=== PATIENT | male | born 1980 | race Caucasian/White ===

== ENCOUNTER 2016-12-15 14:04 | Day surgery (SDC) | payer BC ==
--- NOTE | ~2016-12-15 | OP ---
Record Of Operation [facility] [address] [place]. [address] NAME: JOANN ROJO : 80 STATUS : [facility] UNIT#: [id number] AGE: 36 ADM/REG DATE : 12/15/16 MR#: [id number] REPORT SERV DATE: 12/15/16 DICTATED BY: DENISHA PATINO DATE: 12/15/16 REPORT STATUS : Draft TRANSCRIBED BY: MODMatthias DATE: 12/15/16 DATE OF PROCEDURE: 12/15/2016 PREPROCEDURE DIAGNOSIS: 1 cm right ureteropelvic junction calculus. POSTPROCEDURE DIAGNOSIS: 1 cm right ureteropelvic junction calculus. PROCEDURE: Right ESWL. SURGEON: Denisha Patino M.D. FIRST ASSISTANCE: Nida Arthur. ANESTHESIA: MAC. HISTORY: Mr. Rojo is a 36-year-old white gentleman with a symptomatic right UPJ calculus. We discussed treatment options and he requested right ESWL. Risks specific to this procedure include, but not limited to bleeding, infection, incomplete stone fragmentation, Steinstrasse, hematoma, injury to neighboring organs, need for further urologic procedures, anesthesia complications, and so forth. I answered all of his questions I believe to his satisfaction. Subsequently, he requested the procedure and provided informed written consent. PROCEDURE IN DETAIL: On 12/15/2016, the patient was brought to the lithotripsy suite. He was placed supine on the Dornier Compact Delta II Lithotriptor. Biplanar fluoroscopy was used to localize the right UPJ calculus. A time-out was called. The proper patient and procedure were confirmed. Levaquin was administered as a perioperative antibiotic. At this time, the Anesthesia team established monitored anesthesia care. Subsequently, we delivered a total of 2500 shocks at a maximum power of 4 in rate of 120 shocks per minute to the stone. Fluoroscopy time was 1 minute 26 seconds. The patient tolerated the procedure well without immediate complications, was awakened and transferred to the recovery area in stable condition. JIGAR/HAVEN Denisha Patino M.D. / [id number] CC: Denisha Patino M.D.
[~2016-12-15 14:04] MED LIST: FLOMAX4 PO; NORCO1 TA1 PO; PERCOCET 7.5/321 TAB PO
== END 2016-12-15 18:54 | disposition home or self-care (01) ==
LOC: SDC 14:04
PROVIDERS: Urology
PROC: 0TF3XZZ Fragmentation in Right Kidney Pelvis, External Approach (ICD-10-PCS; principal; 2016-12-15 16:00)
DX: N20.1 Calculus of ureter (principal); Z98.890 Other specified postprocedural states; Z79.899 Other long term (current) drug therapy; Z88.0 Allergy status to penicillin
CPT/HCPCS: 50590; 74000; J2250; J3010